=== PATIENT | male | born 1955 | race American Indian/Alaskan Native ===

== ENCOUNTER 2019-03-15 10:00 | Outpatient (CLI) | payer MEDICAID | END 2019-03-15 10:01 | disposition home or self-care (01) | LOC: C.USIC 10:00 ==

== ENCOUNTER 2019-03-15 10:42 | Outpatient (CLI) | payer MEDICAID | END 2019-03-15 10:43 | disposition home or self-care (01) | LOC: C.PAT 10:42 | DX: L72.3 Sebaceous cyst (principal) ==